=== PATIENT | male | born 1985 | race Caucasian/White ===

== ENCOUNTER 2022-12-07 09:54 | Emergency (ER) | payer MEDICARE, MEDICAID ==
[~2022-12-07] VITALS: Ht 185.4 cm; Wt 75.9 kg
[2022-12-07 09:58] VITALS: BP 126/79
[2022-12-07] MEDS ORDERED: CITALOpram 10mg tablet PO ONE (11:35)
[2022-12-07] MEDS ORDERED: acetaminophen 325mg tablet PO ONE (11:35)
[2022-12-07] MEDS ORDERED: ketorolac trometh inj. 60 MG/2 ML VIAL IM ONE (11:35)
[2022-12-07] MEDS ORDERED: proCHLORperazine 10 MG/2 ml inj IM ONE (11:35)
[2022-12-07] MEDS ORDERED: SUMAtriptan succ. 6 MG/0.5ml vial SQ ONE (11:35)
[2022-12-07] MEDS ORDERED: LORA-269 PO (11:37)
[2022-12-07] MEDS ORDERED: CITA20TA28 PO (11:37)
== END 2022-12-07 12:25 | disposition home or self-care (01) ==
LOC: ER 09:55
DX: H53.143 Visual discomfort, bilateral (principal); G43.909 Migraine, unspecified, not intractable, without status migrainosus; Z88.5 Allergy status to narcotic agent; Z79.899 Other long term (current) drug therapy
CPT/HCPCS: 96372; 99284; J0780; J1885; J3030

== ENCOUNTER 2022-12-21 08:03 | Emergency (ER) | payer MEDICARE, MEDICAID ==
[~2022-12-21] VITALS: Ht 185.4 cm; Wt 77.3 kg
[~2022-12-21 08:03] MED LIST: CITA20TA28 PO; LORA-269 PO
[2022-12-21 08:16] VITALS: BP 146/83
[2022-12-21 09:49] LABS: BASOPHILS % (AUTO) 0.6 % (0-1); EOSINOPHILS # (AUTO) 0.1 X10'3 (0-0.9); HEMATOCRIT 47.9 % (42.0-52.0); HEMOGLOBIN 16.4 g/dl (14.0-17.9); LYMPHOCYTES # (AUTO) 1.8 X10'3 (1.1-4.8); LYMPHOCYTES % (AUTO) 28.6 % (21-51); MEAN CORPUSCULAR HEMOGLOBIN 31.4 PG (27.0-31.0); MEAN CORPUSCULAR HGB CONC 34.2 g/dL (33.0-36.5); MEAN CORPUSCULAR VOLUME 91.6 FL (78-98); MEAN PLATELET VOLUME 7.9 FL (7.4-10.4); MONOCYTES # (AUTO) 0.5 X10'3 (0-0.9); MONOCYTES % (AUTO) 7.7 % (2-12); NEUTROPHILS # (AUTO) 3.9 X10'3 (1.8-7.7); NEUTROPHILS % (AUTO) 62.1 % (42-75); PLATELET COUNT 182 X10'3 (140-440); RED BLOOD COUNT 5.23 X10'6 (4.70-6.10); RED CELL DISTRIBUTION WIDTH 13.6 % (11.5-14.5); WHITE BLOOD COUNT 6.2 X10'3 (4.5-11.0)
[2022-12-21 10:03] LABS: ALANINE AMINOTRANSFERASE 15 U/L (12-78); ALBUMIN 3.9 G/DL (3.4-5.0); ALBUMIN/GLOBULIN RATIO 1.3 (1.1-1.5); ALKALINE PHOSPHATASE 53 IU/L (46-116); ANION GAP 6 (8-16); ASPARTATE AMINO TRANSFERASE 15 U/L (10-37); BILIRUBIN,TOTAL 0.5 MG/DL (0.1-1.0); BLOOD UREA NITROGEN 8 MG/DL (7-18); BUN/CREATININE RATIO 10.3 (10.0-20.0); CHLORIDE 104 MMOL/L (99-107); CREATININE 0.78 MG/DL (0.60-1.10); GLUCOSE 94 MG/DL (70-104); POTASSIUM 4.1 MMOL/L (3.5-5.1); SODIUM 141 MMOL/L (135-145); TOTAL CARBON DIOXIDE 30.9 MMOL/L (24-32); TOTAL PROTEIN 6.9 G/DL (6.4-8.2); eGFR > 90 ML/MIN
[2022-12-21 10:12] LABS: ETHANOL < 0.010 GM/DL (0.0-0.010)
[2022-12-21 12:59] LABS: CLARITY,URINE CLEAR (Clear); COLOR,URINE YELLOW (Yellow); GLUCOSE, URINE NEGATIVE (Neg); KETONES,URINE NEGATIVE (Neg); LEUKOCYTE ESTERASE ,URINE NEGATIVE (Neg); NITRITES, URINE NEGATIVE (Neg); OCCULT BLOOD,URINE NEGATIVE (Neg); PROTEIN,URINE NEGATIVE (Neg); UROBILINOGEN,URINE 0.2 E.U/dL (0.2-1.0)
[2022-12-21 13:04] LABS: UA COLLECTION TYPE URINAL
[2022-12-21] MEDS ORDERED: nicotine 14mg patch - 24hr TD ONE (13:05)
[2022-12-21 13:22] LABS: URINE AMPHETAMINE SCREEN NEGATIVE (Neg); URINE BARBITUATE SCREEN NEGATIVE (Neg); URINE BENZODIAZEPINES SCREEN NEGATIVE (Neg); URINE CANNABINOID SCREEN POSITIVE (Neg); URINE COCAINE SCREEN NEGATIVE (Neg); URINE METHADONE SCREEN NEGATIVE (Neg); URINE OPIATE SCREEN NEGATIVE (Neg); URINE PHENCYCLIDINE SCREEN NEGATIVE (Neg)
--- NOTE | 2022-12-21 13:49 | NUR ---
PACKET FAXED TO [facility]
[2022-12-21] MEDS ORDERED: ESCI-10 PO (17:21)
--- NOTE | 2022-12-21 17:31 | NUR ---
Pt seen by [facility] cleaner housekeeping and pt does not meet criteria for hold and is being DCd back to care facility.
== END 2022-12-21 18:13 | disposition home or self-care (01) ==
LOC: ER 08:03
DX: F32.9 Major depressive disorder, single episode, unspecified (principal); Z20.822 Contact with and (suspected) exposure to COVID-19; G43.909 Migraine, unspecified, not intractable, without status migrainosus; Z72.89 Other problems related to lifestyle; Z88.5 Allergy status to narcotic agent; Z79.899 Other long term (current) drug therapy; X83.8XXA Intentional self-harm by other specified means, initial encounter; Y93.89 Activity, other specified; Y92.89 Other specified places as the place of occurrence of the external cause; Y99.8 Other external cause status
CPT/HCPCS: 36415; 80053; 80305; 80320; 81003; 84443; 85025; 87811; 99285

== ENCOUNTER 2023-02-12 10:18 | Emergency (ER) | payer MEDICARE, MEDICAID ==
[~2023-02-12] VITALS: Ht 185.4 cm; Wt 81.8 kg
[~2023-02-12 10:18] MED LIST changes: -CITA20TA28 PO; +ESCI-10 PO
[2023-02-12 10:26] VITALS: BP 127/50
== END 2023-02-12 11:22 | disposition home or self-care (01) ==
LOC: ER 10:18
DX: F29 Unspecified psychosis not due to a substance or known physiological condition (principal); Z00.8 Encounter for other general examination
CPT/HCPCS: 99281

== ENCOUNTER 2023-03-06 17:29 | Emergency (ER) | payer MEDICARE, MEDICAID ==
[~2023-03-06] VITALS: Ht 177.8 cm; Wt 77.3 kg
--- NOTE | 2023-03-06 18:08 | NUR ---
Pt changed into green scrubs with help from nurse. Pt clothes taken to OF room 27 and labeled. Pt wheelchair put outside of his room. No acute distress noted at this time.
[2023-03-06 18:28] LABS: BASOPHILS % (AUTO) 0.5 % (0-1); EOSINOPHILS # (AUTO) 0.1 X10'3 (0-0.9); EOSINOPHILS % (AUTO) 1.1 % (0-6); HEMOGLOBIN 14.9 g/dl (14.0-17.9); LYMPHOCYTES # (AUTO) 2.1 X10'3 (1.1-4.8); LYMPHOCYTES % (AUTO) 39.7 % (21-51); MEAN CORPUSCULAR HEMOGLOBIN 31.2 PG (27.0-31.0); MEAN CORPUSCULAR HGB CONC 33.8 g/dL (33.0-36.5); MEAN CORPUSCULAR VOLUME 92.3 FL (78-98); MEAN PLATELET VOLUME 8.2 FL (7.4-10.4); MONOCYTES # (AUTO) 0.5 X10'3 (0-0.9); MONOCYTES % (AUTO) 8.6 % (2-12); NEUTROPHILS # (AUTO) 2.7 X10'3 (1.8-7.7); NEUTROPHILS % (AUTO) 50.1 % (42-75); PLATELET COUNT 191 X10'3 (140-440); RED BLOOD COUNT 4.77 X10'6 (4.70-6.10); RED CELL DISTRIBUTION WIDTH 13.7 % (11.5-14.5); WHITE BLOOD COUNT 5.3 X10'3 (4.5-11.0)
[2023-03-06 18:53] LABS: ALANINE AMINOTRANSFERASE 48 U/L (12-78); ALBUMIN 3.8 G/DL (3.4-5.0); ALBUMIN/GLOBULIN RATIO 1.4 (1.1-1.5); ALKALINE PHOSPHATASE 50 IU/L (46-116); ANION GAP 14 (8-16); ASPARTATE AMINO TRANSFERASE 24 U/L (10-37); BILIRUBIN,TOTAL 0.4 MG/DL (0.1-1.0); BLOOD UREA NITROGEN 12 MG/DL (7-18); BUN/CREATININE RATIO 16.7 (10.0-20.0); CALCIUM 8.8 MG/DL (8.5-10.1); CHLORIDE 104 MMOL/L (99-107); CREATININE 0.72 MG/DL (0.60-1.10); ETHANOL 0.069 GM/DL (0.0-0.010); GLUCOSE 78 MG/DL (70-104); POTASSIUM 3.7 MMOL/L (3.5-5.1); SODIUM 142 MMOL/L (135-145); TOTAL CARBON DIOXIDE 24.1 MMOL/L (24-32); TOTAL PROTEIN 6.6 G/DL (6.4-8.2); eGFR > 90 ML/MIN
[2023-03-06 19:29] LABS: VALPROATE 45 UG/ML (50-100)
--- NOTE | 2023-03-06 20:29 | NUR ---
report given to [facility] nurse. pt moved to room #20.
--- NOTE | 2023-03-06 20:49 | NUR ---
received pt from main ER, pt in bed 20.
[2023-03-06] MEDS ORDERED: traZODone 150mg tablet PO SCH (21:05)
--- NOTE | 2023-03-06 21:12 | NUR ---
Pt states he is depressed, has been a parapalegic most of his life and its staring "to get to him." Pt denies MH symptoms at this time. Pt is resting in bed at this time.
[2023-03-06 21:24] LABS: CLARITY,URINE CLOUDY (Clear); COLOR,URINE YELLOW (Yellow); GLUCOSE, URINE NEGATIVE (Neg); KETONES,URINE TRACE mg/dl (Neg); LEUKOCYTE ESTERASE ,URINE NEGATIVE (Neg); NITRITES, URINE NEGATIVE (Neg); OCCULT BLOOD,URINE NEGATIVE (Neg); PROTEIN,URINE NEGATIVE (Neg)
[2023-03-06] MEDS ORDERED: ESCI10TA PO (21:30)
[2023-03-06] MEDS ORDERED: LORA-269 PO (21:30)
[2023-03-06 21:31] LABS: URINE AMPHETAMINE SCREEN NEGATIVE (Neg); URINE BARBITUATE SCREEN NEGATIVE (Neg); URINE BENZODIAZEPINES SCREEN NEGATIVE (Neg); URINE CANNABINOID SCREEN POSITIVE (Neg); URINE COCAINE SCREEN NEGATIVE (Neg); URINE METHADONE SCREEN NEGATIVE (Neg); URINE OPIATE SCREEN NEGATIVE (Neg); URINE PHENCYCLIDINE SCREEN NEGATIVE (Neg)
[2023-03-06 21:41] LABS: UA COLLECTION TYPE NON-SPECIFIED
[2023-03-06 21:42] LABS: SQUAMOUS EPITHELIAL CELL,UR FEW /LPF (FEW)
[2023-03-06 21:43] LABS: COARSE GRANULAR CAST 0-3 /LPF (NEGATIVE); HYALINE CASTS 0-3 /LPF (NEGATIVE)
[2023-03-06 21:46] LABS: AMORPHOUS PHOSPHATES 4+; BACTERIA,URINE FEW /HPF (Neg); RBC,URINE 0-2 /HPF (0-2)
[2023-03-06 21:47] LABS: WBC,URINE 0-4 /HPF (0-4)
--- NOTE | 2023-03-06 23:03 | NUR ---
K+ level 3.1, KDUR replacement given 40meq. Addendum: 03/06/23 at 2304 by BRENDAN Disregard note
--- NOTE | 2023-03-06 23:05 | NUR ---
Pt appears to be sleeping.
--- NOTE | 2023-03-06 23:07 | NUR ---
Packet faxed to [facility].
--- NOTE | 2023-03-07 00:52 | NUR ---
pt appears to be sleeping.
--- NOTE | 2023-03-07 02:43 | NUR ---
pt appears to be sleeping.
--- NOTE | 2023-03-07 05:23 | NUR ---
pt appears to be sleeping.
[2023-03-07 05:51] VITALS: BP 98/50
[2023-03-07] MEDS: LORazepam 1 MG tablet PO SCH ×2 (07:16)
[2023-03-07] MEDS ORDERED: ESCITALOPRAM OXALATE 5 MG TABLET PO SCH (08:00)
--- NOTE | 2023-03-07 08:21 | NUR ---
Pt attempted to get up in wheelchair but was just laying straight and crying. Wants to has nothing to live for. States he is depressed he never got to make any friends or have a girlfriend. Has been in the hospital his whole life. Tech caught pt trying to tie BP cuff around his neck and then the sheet around his neck. Pt educated that if he tries that agin we will have to take away his sheets. Pt encouraged to verbal feelings and help figure out a solution.
--- NOTE | 2023-03-07 08:27 | NUR ---
I WITNESSED PT TRYING TO STRANGLE HIMSELF WITH THE SHEET. SAW HIM WRAPPING IT AROUND HIS NECK. ALSO PT TRIED TO STANGLE HIMSELF WITH THE BLOOD PRESSURE CUFF.
--- NOTE | 2023-03-07 09:43 | NUR ---
Pt to be discharged home back to detention, jailhome improvement installer will tile picker pt around noon.
== END 2023-03-07 12:24 | disposition still patient (30) ==
LOC: ER 17:29
DX: R45.851 Suicidal ideations (principal); Z20.822 Contact with and (suspected) exposure to COVID-19; G43.909 Migraine, unspecified, not intractable, without status migrainosus; Z88.5 Allergy status to narcotic agent
CPT/HCPCS: 36415; 80053; 80164; 80305; 80320; 81001; 85025; 87811; 99285

== ENCOUNTER 2023-03-09 00:46 | Emergency (ER) | payer MEDICARE, MEDICAID ==
[~2023-03-09] VITALS: Ht 185.4 cm; Wt 75.0 kg
[~2023-03-09 00:46] MED LIST changes: -ESCI-10 PO; +ESCI10TA PO
[2023-03-09 01:19] LABS: BASOPHILS % (AUTO) 0.5 % (0-1); EOSINOPHILS # (AUTO) 0.1 X10'3 (0-0.9); EOSINOPHILS % (AUTO) 1.4 % (0-6); HEMATOCRIT 43.9 % (42.0-52.0); HEMOGLOBIN 15.2 g/dl (14.0-17.9); LYMPHOCYTES # (AUTO) 2.8 X10'3 (1.1-4.8); LYMPHOCYTES % (AUTO) 31.3 % (21-51); MEAN CORPUSCULAR HEMOGLOBIN 31.3 PG (27.0-31.0); MEAN CORPUSCULAR HGB CONC 34.7 g/dL (33.0-36.5); MEAN CORPUSCULAR VOLUME 90.4 FL (78-98); MEAN PLATELET VOLUME 7.8 FL (7.4-10.4); MONOCYTES # (AUTO) 0.9 X10'3 (0-0.9); MONOCYTES % (AUTO) 9.7 % (2-12); NEUTROPHILS % (AUTO) 57.1 % (42-75); PLATELET COUNT 180 X10'3 (140-440); RED BLOOD COUNT 4.86 X10'6 (4.70-6.10); RED CELL DISTRIBUTION WIDTH 13.8 % (11.5-14.5); WHITE BLOOD COUNT 8.8 X10'3 (4.5-11.0)
[2023-03-09 01:29] LABS: ALANINE AMINOTRANSFERASE 44 U/L (12-78); ALBUMIN 3.8 G/DL (3.4-5.0); ALBUMIN/GLOBULIN RATIO 1.4 (1.1-1.5); ALKALINE PHOSPHATASE 51 IU/L (46-116); ANION GAP 8 (8-16); ASPARTATE AMINO TRANSFERASE 16 U/L (10-37); BILIRUBIN,TOTAL 0.6 MG/DL (0.1-1.0); BLOOD UREA NITROGEN 6 MG/DL (7-18); BUN/CREATININE RATIO 6.9 (10.0-20.0); CALCIUM 8.8 MG/DL (8.5-10.1); CHLORIDE 105 MMOL/L (99-107); CREATININE 0.87 MG/DL (0.60-1.10); ETHANOL < 0.010 GM/DL (0.0-0.010); GLUCOSE 107 MG/DL (70-104); POTASSIUM 4.1 MMOL/L (3.5-5.1); SODIUM 140 MMOL/L (135-145); TOTAL PROTEIN 6.5 G/DL (6.4-8.2); eGFR > 90 ML/MIN
--- NOTE | 2023-03-09 07:10 | NUR ---
Pt. taken in his wheelchair over to ER Overflow from the main ER accompanied by Tech. He is in bed sleeping at this time, rr are even and unlabored. Pt. was provided a clean urinal and is encouraged to provide a urine sample when he can since one has not yet been received.
--- NOTE | 2023-03-09 09:00 | NUR ---
Pt. continues to nap comfortably in bed and refused breakfast. 1:1 was completed at bedside and pt. was cooperative with assessment. He continues to report S/I, but denies any current plan. Pt. endorses ongoing depression and states, "I have a disease and it makes me want to hurt myself. I've tried multiple things before." Upon further questioning by this senior medical writer, pt. admits he has previously tried to run into traffic and hanging himself. Pt. is unsure of what medications he currently takes so this senior medical writer will attempt to call pt's current Jail to confirm.
--- NOTE | 2023-03-09 09:55 | NUR ---
Pt's urine was collected and sent to the lab.
[2023-03-09 10:31] LABS: CLARITY,URINE CLEAR (Clear); COLOR,URINE AMBER (Yellow); GLUCOSE, URINE NEGATIVE (Neg); KETONES,URINE TRACE mg/dl (Neg); LEUKOCYTE ESTERASE ,URINE NEGATIVE (Neg); NITRITES, URINE NEGATIVE (Neg); OCCULT BLOOD,URINE NEGATIVE (Neg); PH,URINE 6.5 (4.8-8.0); PROTEIN,URINE TRACE mg/dl (Neg)
[2023-03-09 10:33] LABS: UA COLLECTION TYPE CLN CATCH MIDSTREAM
[2023-03-09 10:39] LABS: MUCUS STRANDS MANY /LPF (Neg)
[2023-03-09 10:42] LABS: BACTERIA,URINE FEW /HPF (Neg); WBC,URINE 0-4 /HPF (0-4)
[2023-03-09 10:43] LABS: RBC,URINE 0-2 /HPF (0-2)
[2023-03-09 10:44] LABS: SQUAMOUS EPITHELIAL CELL,UR FEW /LPF (FEW)
[2023-03-09 10:52] LABS: URINE AMPHETAMINE SCREEN NEGATIVE (Neg); URINE BARBITUATE SCREEN NEGATIVE (Neg); URINE BENZODIAZEPINES SCREEN NEGATIVE (Neg); URINE CANNABINOID SCREEN POSITIVE (Neg); URINE COCAINE SCREEN NEGATIVE (Neg); URINE METHADONE SCREEN NEGATIVE (Neg); URINE OPIATE SCREEN POSITIVE (Neg); URINE PHENCYCLIDINE SCREEN NEGATIVE (Neg)
--- NOTE | 2023-03-09 10:56 | NUR ---
This program writer called [facility] in order to verify pt's home medications.
--- NOTE | 2023-03-09 11:00 | NUR ---
Pt. continues to sleep at this time, laying in bed on his left side, rise and fall of chest noted.
--- NOTE | 2023-03-09 11:23 | NUR ---
FAXED PT PACKET TO [facility].
[2023-03-09] MEDS ORDERED: LEVO75CA5 PO (11:29)
[2023-03-09] MEDS ORDERED: LORA-269 PO (11:29)
[2023-03-09] MEDS ORDERED: CHOL20002 PO (11:29)
[2023-03-09] MEDS ORDERED: DESM0.1T24 PO (11:29)
[2023-03-09] MEDS ORDERED: BUSP10TA11 PO (11:29)
[2023-03-09] MEDS ORDERED: ASCO-139 PO (11:29)
[2023-03-09] MEDS ORDERED: DIVA250T2 PO (11:29)
[2023-03-09] MEDS ORDERED: CITA-109 PO (11:29)
[2023-03-09] MEDS ORDERED: DESMOPRESSIN ACETATE 0.1 MG TABLET PO ONE (11:45)
--- NOTE | 2023-03-09 11:51 | NUR ---
Received orders from Dr. Bergman to start pt's daily medications now since he has not received them since yesterday morning. Also, to give pt. a one time dose of 0.1mg of desmopressin acetate now.
[2023-03-09] MEDS ORDERED: LORazepam 1 MG tablet PO PRN (11:55)
[2023-03-09] MEDS ORDERED: divalproex sod 250mg ER (24-hour) tablet PO SCH (11:58)
[2023-03-09] MEDS ORDERED: citalopram 20mg tablet PO SCH (11:59)
[2023-03-09] MEDS ORDERED: busPIRone 5mg tablet PO SCH (12:00)
--- NOTE | 2023-03-09 12:31 | NUR ---
Pt. reported anxiety r/t being in the hospital and requested PRN Ativan 1mg, medication was administered and will monitor.
--- NOTE | 2023-03-09 13:00 | NUR ---
Pt. is sleeping at this time, laying on his left side, rr are even and unlabored.
--- NOTE | 2023-03-09 13:15 | NUR ---
[facility] at bedside evaluating pt. at this time.
--- NOTE | 2023-03-09 15:09 | NUR ---
Pt. continues to sleep at this time, laying on his left side. RR are even and unlabored.
--- NOTE | 2023-03-09 16:44 | NUR ---
Pt. was discharged from the unit at this time in his wheel chair accompanied by Tech, his caregiver, and security. Pt. will be retuning back to the Assisted he lives at, [facility]. His caregiver will be driving him home. Pt's belongings were returned to him and he is able to contract for safety.
[2023-03-09 16:47] VITALS: BP 103/75
[2023-03-09] MEDS ORDERED: DESMOPRESSIN ACETATE 0.1 MG TABLET PO SCH (20:00)
[2023-03-10] MEDS ORDERED: levoTHYROXINE 75mcg tablet PO SCH (07:00)
== END 2023-03-09 16:51 | disposition home or self-care (01) ==
LOC: ER 00:47
DX: F99 Mental disorder, not otherwise specified (principal); Z20.822 Contact with and (suspected) exposure to COVID-19; G43.909 Migraine, unspecified, not intractable, without status migrainosus; Z88.5 Allergy status to narcotic agent
CPT/HCPCS: 36415; 80053; 80305; 80320; 81001; 85025; 87811; 99285

== ENCOUNTER 2023-04-03 14:58 | Emergency (ER) | payer MEDICARE, MEDICAID ==
[~2023-04-03] VITALS: Ht 185.4 cm; Wt 69.1 kg
[~2023-04-03 14:58] MED LIST changes: +ASCO-139 PO; +BUSP10TA11 PO; +CHOL20002 PO; +CITA-109 PO; +DESM0.1T24 PO; +DIVA250T2 PO; -ESCI10TA PO; +LEVO75CA5 PO
[2023-04-03 15:37] LABS: BASOPHILS # (AUTO) 0.1 X10'3 (0-0.2); BASOPHILS % (AUTO) 0.6 % (0-1); EOSINOPHILS % (AUTO) 0.3 % (0-6); HEMATOCRIT 42.2 % (42.0-52.0); HEMOGLOBIN 14.3 g/dl (14.0-17.9); LYMPHOCYTES # (AUTO) 1.9 X10'3 (1.1-4.8); LYMPHOCYTES % (AUTO) 20.4 % (21-51); MEAN CORPUSCULAR HEMOGLOBIN 31.2 PG (27.0-31.0); MEAN CORPUSCULAR VOLUME 91.9 FL (78-98); MEAN PLATELET VOLUME 7.1 FL (7.4-10.4); MONOCYTES # (AUTO) 0.6 X10'3 (0-0.9); MONOCYTES % (AUTO) 5.9 % (2-12); NEUTROPHILS # (AUTO) 6.8 X10'3 (1.8-7.7); NEUTROPHILS % (AUTO) 72.8 % (42-75); PLATELET COUNT 229 X10'3 (140-440); RED BLOOD COUNT 4.59 X10'6 (4.70-6.10); RED CELL DISTRIBUTION WIDTH 14.4 % (11.5-14.5); WHITE BLOOD COUNT 9.4 X10'3 (4.5-11.0)
[2023-04-03 15:53] LABS: ALANINE AMINOTRANSFERASE 29 U/L (12-78); ALBUMIN 3.4 G/DL (3.4-5.0); ALBUMIN/GLOBULIN RATIO 1.3 (1.1-1.5); ALKALINE PHOSPHATASE 52 IU/L (46-116); ANION GAP 9 (8-16); ASPARTATE AMINO TRANSFERASE 9 U/L (10-37); BILIRUBIN,TOTAL 0.5 MG/DL (0.1-1.0); BLOOD UREA NITROGEN 11 MG/DL (7-18); BUN/CREATININE RATIO 13.9 (10.0-20.0); CALCIUM 8.9 MG/DL (8.5-10.1); CHLORIDE 103 MMOL/L (99-107); CREATININE 0.79 MG/DL (0.60-1.10); GLUCOSE 98 MG/DL (70-104); POTASSIUM 4.1 MMOL/L (3.5-5.1); SODIUM 140 MMOL/L (135-145); TOTAL CARBON DIOXIDE 28.2 MMOL/L (24-32); TOTAL PROTEIN 6.1 G/DL (6.4-8.2); eGFR > 90 ML/MIN
[2023-04-03 16:04] LABS: ETHANOL < 0.010 GM/DL (0.0-0.010)
[2023-04-03 19:08] LABS: URINE AMPHETAMINE SCREEN NEGATIVE (Neg); URINE BARBITUATE SCREEN NEGATIVE (Neg); URINE BENZODIAZEPINES SCREEN NEGATIVE (Neg); URINE CANNABINOID SCREEN POSITIVE (Neg); URINE COCAINE SCREEN NEGATIVE (Neg); URINE METHADONE SCREEN NEGATIVE (Neg); URINE OPIATE SCREEN NEGATIVE (Neg); URINE PHENCYCLIDINE SCREEN NEGATIVE (Neg)
--- NOTE | 2023-04-03 20:15 | NUR ---
PT APPEARS TO BE SLEEPING, IN SUPINE POSITION, BREATHING AND UNLABORED IN NO APPARENT DISTRESS
[2023-04-04] MEDS ORDERED: levoTHYROXINE 75mcg tablet PO SCH (07:00)
--- NOTE | 2023-04-04 07:21 | NUR ---
Patient currently sleeping not in distress.
[2023-04-04 07:26] VITALS: BP 103/70
[2023-04-04] MEDS ORDERED: DESMOPRESSIN ACETATE 0.1 MG TABLET PO SCH (08:00)
[2023-04-04] MEDS ORDERED: busPIRone 5mg tablet PO SCH (08:00)
[2023-04-04] MEDS ORDERED: citalopram 20mg tablet PO SCH (08:00)
[2023-04-04] MEDS ORDERED: divalproex sod 250mg ER (24-hour) tablet PO SCH (08:00)
== END 2023-04-04 11:46 | disposition still patient (30) ==
LOC: ER 14:58
DX: F78.A9 Other genetic related intellectual disability (principal); Z20.822 Contact with and (suspected) exposure to COVID-19; G43.909 Migraine, unspecified, not intractable, without status migrainosus; F32.A Depression, unspecified; Z88.5 Allergy status to narcotic agent; Z79.899 Other long term (current) drug therapy
CPT/HCPCS: 36415; 80053; 80305; 80320; 84443; 85025; 87811; 99285

== ENCOUNTER 2023-06-08 08:33 | Emergency (ER) | payer MEDICARE, MEDICAID ==
[~2023-06-08] VITALS: Ht 185.4 cm; Wt 79.5 kg
[~2023-06-08 08:33] MED LIST changes: -ASCO-139 PO; -CHOL20002 PO; -LORA-269 PO
[2023-06-08 08:36] VITALS: BP 142/83; PULSE 86; RESP 17; TEMP 97.9; O2SAT 97
--- NOTE | 2023-06-08 10:16 | NUR ---
Paged rn social services to see this patient orly
[2023-06-09] MEDS ORDERED: LORA-269 PO (05:30)
[2023-06-09] MEDS ORDERED: CITA20TA28 PO (05:30)
[2023-06-09] MEDS ORDERED: vitamin d PO (05:30)
[2023-06-09] MEDS ORDERED: [UNRECOGNIZED DRUG - CODE] PO (05:30)
[2023-06-09] MEDS ORDERED: MUPI22OI30 TOP (05:30)
[2023-06-09] MEDS ORDERED: OMEP40CA21 PO (05:30)
== END 2023-06-08 10:46 | disposition home or self-care (01) ==
LOC: ER 08:33
DX: F89 Unspecified disorder of psychological development (principal); G43.909 Migraine, unspecified, not intractable, without status migrainosus; Z88.5 Allergy status to narcotic agent
CPT/HCPCS: 99284

== ENCOUNTER 2023-06-08 23:39 | Emergency (ER) | payer MEDICARE, MEDICAID ==
[~2023-06-08] VITALS: Ht 185.4 cm; Wt 65.0 kg
--- NOTE | 2023-06-09 01:25 | NUR ---
[facility] a [facility], he states they didn't pick him up today and also that another tenant is going into his room from the penitentiary.
[2023-06-09 02:24] LABS: BASOPHILS # (AUTO) 0.1 X10'3 (0-0.2); BASOPHILS % (AUTO) 0.8 % (0-1); EOSINOPHILS # (AUTO) 0.2 X10'3 (0-0.9); EOSINOPHILS % (AUTO) 2.1 % (0-6); HEMOGLOBIN 15.5 g/dl (14.0-17.9); LYMPHOCYTES # (AUTO) 3.4 X10'3 (1.1-4.8); LYMPHOCYTES % (AUTO) 36.8 % (21-51); MEAN CORPUSCULAR HEMOGLOBIN 31.3 PG (27.0-31.0); MEAN CORPUSCULAR HGB CONC 33.6 g/dL (33.0-36.5); MEAN CORPUSCULAR VOLUME 93.3 FL (78-98); MEAN PLATELET VOLUME 7.5 FL (7.4-10.4); MONOCYTES # (AUTO) 0.6 X10'3 (0-0.9); MONOCYTES % (AUTO) 6.7 % (2-12); NEUTROPHILS # (AUTO) 4.9 X10'3 (1.8-7.7); NEUTROPHILS % (AUTO) 53.6 % (42-75); PLATELET COUNT 240 X10'3 (140-440); RED BLOOD COUNT 4.93 X10'6 (4.70-6.10); RED CELL DISTRIBUTION WIDTH 14.4 % (11.5-14.5); WHITE BLOOD COUNT 9.2 X10'3 (4.5-11.0)
[2023-06-09 02:32] LABS: ALANINE AMINOTRANSFERASE 24 U/L (12-78); ALBUMIN 3.8 G/DL (3.4-5.0); ALBUMIN/GLOBULIN RATIO 1.2 (1.1-1.5); ALKALINE PHOSPHATASE 55 IU/L (46-116); ANION GAP 7 (8-16); ASPARTATE AMINO TRANSFERASE 13 U/L (10-37); BILIRUBIN,TOTAL 0.4 MG/DL (0.1-1.0); BLOOD UREA NITROGEN 7 MG/DL (7-18); BUN/CREATININE RATIO 8.5 (10.0-20.0); CALCIUM 9.3 MG/DL (8.5-10.1); CHLORIDE 108 MMOL/L (99-107); CREATININE 0.82 MG/DL (0.60-1.10); GLUCOSE 92 MG/DL (70-104); POTASSIUM 4.1 MMOL/L (3.5-5.1); SODIUM 144 MMOL/L (135-145); TOTAL CARBON DIOXIDE 29.3 MMOL/L (24-32); TOTAL PROTEIN 7.1 G/DL (6.4-8.2); eCRCL 111 ML/MIN; eGFR > 90 ML/MIN
[2023-06-09] MEDS ORDERED: CITA20TA28 PO (05:30)
[2023-06-09] MEDS ORDERED: [UNRECOGNIZED DRUG - CODE] PO (05:30)
[2023-06-09] MEDS ORDERED: OMEP40CA21 PO (05:30)
[2023-06-09] MEDS ORDERED: LORA-269 PO (05:30)
[2023-06-09] MEDS ORDERED: MUPI22OI30 TOP (05:30)
[2023-06-09] MEDS ORDERED: vitamin d PO (05:30)
--- NOTE | 2023-06-09 05:40 | NUR ---
Received pt. from ER, placed in bed 24. Placed pt. in green scrubs. Pt has CP and is in a wheelchair. Pt is suicidal and had thoughts to walk into traffic. Pt is malodorous with skin around his hands blackenedn from wheelchair. Pt given urinal and water at bedside.
--- NOTE | 2023-06-09 07:27 | NUR ---
PT LYING ON RIGHT SIDE IN BED, APPEARS TO BE SLEEPING IN NAD, BREATHING EVEN AND UNLABORED. PT INFOMRED BREAKFAST TRAY AT BEDSIDE, HE CONTINUES TO SLEEP
[2023-06-09 07:48] LABS: BILIRUBIN,URINE NEGATIVE (Neg); CLARITY,URINE CLEAR (Clear); COLOR,URINE YELLOW (Yellow); GLUCOSE, URINE NEGATIVE (Neg); KETONES,URINE NEGATIVE (Neg); LEUKOCYTE ESTERASE ,URINE NEGATIVE (Neg); NITRITES, URINE NEGATIVE (Neg); OCCULT BLOOD,URINE NEGATIVE (Neg); PH,URINE 6.5 (4.8-8.0); PROTEIN,URINE NEGATIVE (Neg); UROBILINOGEN,URINE 0.2 E.U/dL (0.2-1.0)
[2023-06-09 07:49] LABS: ETHANOL < 10 MG/DL (<10); THYROID STIMULATING HORMONE 4.82 ulU/ml (0.34-4.50)
[2023-06-09 07:52] LABS: UA COLLECTION TYPE NON-SPECIFIED
[2023-06-09 08:00] LABS: URINE AMPHETAMINE SCREEN NEGATIVE (Neg); URINE BARBITUATE SCREEN NEGATIVE (Neg); URINE BENZODIAZEPINES SCREEN NEGATIVE (Neg); URINE CANNABINOID SCREEN POSITIVE (Neg); URINE COCAINE SCREEN NEGATIVE (Neg); URINE METHADONE SCREEN NEGATIVE (Neg); URINE OPIATE SCREEN NEGATIVE (Neg); URINE PHENCYCLIDINE SCREEN NEGATIVE (Neg)
[2023-06-09] MEDS ORDERED: buPROPion 100mg tablet PO SCH (08:00)
[2023-06-09] MEDS: busPIRone 5mg tablet PO SCH ×3 (08:08→20:07)
[2023-06-09] MEDS: divalproex sodium 500mg tablet.DR PO SCH ×2 (08:08→17:39)
[2023-06-09] MEDS: aripiprazole 5mg tablet PO SCH (08:09)
[2023-06-09] MEDS: CITALOpram 10mg tablet PO SCH (08:10)
--- NOTE | 2023-06-09 08:22 | NUR ---
PTS CAREGIVER ARRIVED AT ER CLAIMING SHE WAS CALLED BY SOMEONE TO "COME GET HIM OR HE WILL BE PLACED ON A HOLD" THIS RN IS UNABLE TO LOCATE ANY DOCUMENTATION OF SUCH A CALL AND NOTHING OF THE SORT WAS MENTIONED IN REPORT. PT HAS ALREADY BEEN PLACED ON A 1798 HOLD AND MUST BE EVALUATED BY [facility] BEFORE HE CAN BE RELEASED. CAREGIVER INFOMRED OF THIS, SHE VERBALIZES UNDERSTANDING
--- NOTE | 2023-06-09 10:50 | NUR ---
RECEIVED REPORT FROM AIYANA HAN. PT IS IN BED RESTING. WITNESSED CHEST RISING AND FALLING. BREATHING EVEN UNLABORED. NO NEEDS AT THIS TIME.
--- NOTE | 2023-06-09 12:19 | NUR ---
PT GOT LUNCH TRAY BUT DID NOT WANT TO EAT AND KEPT SLEEPING. LEFT TRAY AT BEDSIDE
--- NOTE | 2023-06-09 12:57 | NUR ---
GAVE PT 1300 MEDICATION. PT IS AWAKE AND DRINKING WATER. PT IS CALM AND COOPERATIVE, NO NEEDS AT THIS TIME.
--- NOTE | 2023-06-09 13:57 | NUR ---
PT GOT UP TO USE THE RESTROOM A COUPLE TIMES. TECH CHANGED HIS SHEETS AND HE ASKED FOR MORE WATER. PT IS CALM AND COOPERATIVE.
--- NOTE | 2023-06-09 14:55 | NUR ---
PT IS ASLEEP IN BED. BREATHING EVEN, UNLABORED
--- NOTE | 2023-06-09 16:01 | NUR ---
PT IS IN BED RESTING. PT HAS BEEN DRINKING ALOT OF WATER AND URINATING FREQUENTLY. PT STATED HE HAS DIABETES INSIPIDUS. PT HAS BEEN VERY COOPERATIVE AND COMPLIANT.
--- NOTE | 2023-06-09 16:47 | NUR ---
PT IS IN BED ASLEEP.
--- NOTE | 2023-06-09 17:43 | NUR ---
PT IS AWAKE AND WANTED FRESH ICE WATER. PT'S MEDICATION WAS DUE AND ADMINISTERED. PT TOOK WITH NO PROBLEMS. PT LAYED BACK DOWN IN BED.
--- NOTE | 2023-06-09 18:45 | NUR ---
Client ate 50% of dinner tray, Adjusted clients bed. He requested Trazodone for sleep. Reported mild right hip pain.
[2023-06-09] MEDS ORDERED: traZODone 50mg tablet PO PRN (19:55)
--- NOTE | 2023-06-09 20:00 | NUR ---
Client given third pitcher of water. Dx: SIADH Order for 150 mg Trazodone Tab PO received. 500 ml Urine emptied from urinal. Client is pleasant and cooperative. Addendum: 06/09/23 at 2222 by [email or web address] CORRECTION: SIADH is uncertain. Client is a paraplegic.
--- NOTE | 2023-06-09 20:16 | NUR ---
Received PM Buspar and 159 mg Trazodone Tab PO. Compliant with meds. Addendum: 06/09/23 at 2111 by [email or web address] CORRECTION: 150 mg Trazodone - not 159.
--- NOTE | 2023-06-09 20:55 | NUR ---
Resting on right side. Resp even and unlabored.
--- NOTE | 2023-06-10 01:15 | NUR ---
Resting on left side. Resp even and unlabored.
--- NOTE | 2023-06-10 01:32 | NUR ---
Emptied 1000 ml from urinal. Given another pitcher of water. Lying on right side.
--- NOTE | 2023-06-10 03:10 | NUR ---
Emptied 300 CC from urinal
--- NOTE | 2023-06-10 03:18 | NUR ---
Episode of coughing. Client stated "My water went down the wrong pipe." Assisted to a raised position by Johnnie Doshi LVN. Stopped coughing. Resp even and unlabored.
--- NOTE | 2023-06-10 05:26 | NUR ---
Sleeping on right side. Resp even and unlabored.
[2023-06-10 05:52] VITALS: BP 117/65; PULSE 74; RESP 18; TEMP 97.6; O2SAT 97
--- NOTE | 2023-06-10 07:29 | NUR ---
Patient sleeping supine. No distress observed. Continue to monitor.
--- NOTE | 2023-06-10 08:14 | NUR ---
Patient eating breakfast. No distress observed. Continue to monitor.
[2023-06-10] MEDS: aripiprazole 5mg tablet PO SCH (08:45)
[2023-06-10] MEDS: divalproex sodium 500mg tablet.DR PO SCH (08:45)
[2023-06-10] MEDS: busPIRone 5mg tablet PO SCH (08:45)
[2023-06-10] MEDS: CITALOpram 10mg tablet PO SCH (09:37)
--- NOTE | 2023-06-10 10:05 | NUR ---
Patient urinating often and drinking a lot of water. No distress observed. Continue to monitor,
--- NOTE | 2023-06-10 10:40 | NUR ---
ESSENCE, Ashlee, evaluating patient. No distress observed. Continue to monitor.
--- NOTE | 2023-06-10 12:05 | NUR ---
Patient is dressed and ready to go as patient was not placed on a hold. Patient eating lunch and awaiting pick-up from his fdc. Patient is calm and cooperative. No distress observed. Continue to monitor.
== END 2023-06-10 12:25 | disposition home or self-care (01) ==
LOC: ER 23:39
DX: R45.851 Suicidal ideations (principal); Z20.822 Contact with and (suspected) exposure to COVID-19; R62.50 Unspecified lack of expected normal physiological development in childhood; G43.909 Migraine, unspecified, not intractable, without status migrainosus; Z88.5 Allergy status to narcotic agent; Z88.8 Allergy status to other drugs, medicaments and biological substances; Z79.899 Other long term (current) drug therapy
CPT/HCPCS: 36415; 80053; 80305; 80320; 81003; 84443; 85025; 87811; 99285

== ENCOUNTER 2023-08-22 20:16 | Emergency (ER) | payer MEDICAID, MEDICARE ==
[~2023-08-22] VITALS: Ht 185.4 cm; Wt 72.0 kg
[~2023-08-22 20:16] MED LIST changes: +CITA20TA28 PO; +LORA-269 PO; +MUPI22OI30 TOP; +OMEP40CA21 PO; +[UNRECOGNIZED DRUG - CODE] PO; +vitamin d PO
[2023-08-23 00:04] LABS: MEAN CORPUSCULAR HEMOGLOBIN 31.1 PG (27.0-31.0); MEAN CORPUSCULAR VOLUME 90.3 FL (78-98); MEAN PLATELET VOLUME 7.1 FL (7.4-10.4); RED CELL DISTRIBUTION WIDTH 13.9 % (11.5-14.5)
[2023-08-23 00:06] LABS: BASOPHILS # (AUTO) 0.2 X10'3 (0-0.2); BASOPHILS % (AUTO) 1.5 % (0-1); EOSINOPHILS # (AUTO) 0.3 X10'3 (0-0.9); EOSINOPHILS % (AUTO) 2.6 % (0-6); HEMATOCRIT 44.2 % (42.0-52.0); HEMOGLOBIN 15.2 g/dl (14.0-17.9); LYMPHOCYTES # (AUTO) 3.8 X10'3 (1.1-4.8); LYMPHOCYTES % (AUTO) 37.8 % (21-51); MEAN CORPUSCULAR HGB CONC 34.4 g/dL (33.0-36.5); MONOCYTES # (AUTO) 0.6 X10'3 (0-0.9); NEUTROPHILS # (AUTO) 5.2 X10'3 (1.8-7.7); NEUTROPHILS % (AUTO) 52.1 % (42-75); PLATELET COUNT 234 X10'3 (140-440)
[2023-08-23 00:17] LABS: ALANINE AMINOTRANSFERASE 28 U/L (12-78); ALBUMIN 3.4 G/DL (3.4-5.0); ALBUMIN/GLOBULIN RATIO 1.1 (1.1-1.5); ALKALINE PHOSPHATASE 61 IU/L (46-116); ANION GAP 8 (8-16); ASPARTATE AMINO TRANSFERASE 15 U/L (10-37); BILIRUBIN,TOTAL 0.4 MG/DL (0.1-1.0); BLOOD UREA NITROGEN 13 MG/DL (7-18); BUN/CREATININE RATIO 15.5 (10.0-20.0); CALCIUM 8.6 MG/DL (8.5-10.1); CHLORIDE 102 MMOL/L (99-107); CREATININE 0.84 MG/DL (0.60-1.10); GLUCOSE 94 MG/DL (70-104); POTASSIUM 4.3 MMOL/L (3.5-5.1); SODIUM 137 MMOL/L (135-145); TOTAL CARBON DIOXIDE 27.1 MMOL/L (24-32); TOTAL PROTEIN 6.5 G/DL (6.4-8.2); eCRCL 120 ML/MIN; eGFR > 90 ML/MIN
[2023-08-23 00:26] LABS: ETHANOL < 10 MG/DL (<10); THYROID STIMULATING HORMONE 3.26 ulU/ml (0.34-4.50)
[2023-08-23] MEDS ORDERED: DIVA250T8 PO (01:12)
[2023-08-23] MEDS ORDERED: BUSP10TA3 PO (01:12)
[2023-08-23] MEDS ORDERED: CITA10TA93 (01:12)
[2023-08-23] MEDS ORDERED: DESM10SP7 BOTHNARES (01:12)
[2023-08-23] MEDS ORDERED: ARIP20TA21 PO (01:12)
[2023-08-23] MEDS ORDERED: CITA20TA28 PO (01:12)
[2023-08-23 01:26] LABS: URINE AMPHETAMINE SCREEN NEGATIVE (Neg); URINE BARBITUATE SCREEN NEGATIVE (Neg); URINE BENZODIAZEPINES SCREEN NEGATIVE (Neg); URINE CANNABINOID SCREEN POSITIVE (Neg); URINE COCAINE SCREEN NEGATIVE (Neg); URINE METHADONE SCREEN NEGATIVE (Neg); URINE OPIATE SCREEN NEGATIVE (Neg); URINE PHENCYCLIDINE SCREEN NEGATIVE (Neg)
[2023-08-23 06:17] VITALS: O2SAT 96
[2023-08-23] MEDS ORDERED: busPIRone 5mg tablet PO SCH (08:00)
[2023-08-23] MEDS ORDERED: citalopram 20mg tablet PO SCH (08:00)
[2023-08-23 12:55] VITALS: BP 95/55; PULSE 64; RESP 20; TEMP 98.1
[2023-08-23] MEDS ORDERED: ARIPIPRAZOLE 10 MG TABLET PO SCH (21:00)
[2023-08-23] MEDS ORDERED: divalproex sod 250mg ER (24-hour) tablet PO SCH (21:00)
[2023-08-23] MEDS ORDERED: desmopressin 0.1mg/ml nasal spray 5ml btl NS SCH (21:00)
== END 2023-08-23 12:58 | disposition still patient (30) ==
LOC: ER 20:16
DX: R45.851 Suicidal ideations (principal); Z20.822 Contact with and (suspected) exposure to COVID-19; G43.909 Migraine, unspecified, not intractable, without status migrainosus; R44.2 Other hallucinations; Z88.5 Allergy status to narcotic agent; Z79.899 Other long term (current) drug therapy
CPT/HCPCS: 36415; 80053; 80305; 80320; 84443; 85025; 87811; 99285; C2617

== ENCOUNTER 2023-11-13 01:46 | Emergency (ER) | payer MEDICARE ==
[~2023-11-13] VITALS: Ht 185.4 cm; Wt 72.7 kg
[~2023-11-13 01:46] MED LIST changes: +ARIP20TA21 PO; -BUSP10TA11 PO; +BUSP10TA3 PO; -CITA-109 PO; -DESM0.1T24 PO; +DESM10SP7 BOTHNARES; -DIVA250T2 PO; +DIVA250T8 PO; -LEVO75CA5 PO; -LORA-269 PO; -MUPI22OI30 TOP; -OMEP40CA21 PO; -[UNRECOGNIZED DRUG - CODE] PO; -vitamin d PO
[2023-11-13 02:43] LABS: EOSINOPHILS # (AUTO) 0.2 X10'3 (0-0.9)
[2023-11-13 02:48] LABS: LYMPHOCYTES # (AUTO) 2.5 X10'3 (1.1-4.8); MEAN CORPUSCULAR VOLUME 89.8 FL (78-98); NEUTROPHILS # (AUTO) 6.7 X10'3 (1.8-7.7)
[2023-11-13 02:57] LABS: ALBUMIN 4.3 G/DL (3.4-5.0); ANION GAP 7 (8-16); BASOPHILS # (AUTO) 0.1 X10'3 (0-0.2); BASOPHILS % (AUTO) 0.6 % (0-1); BLOOD UREA NITROGEN 12 MG/DL (7-18); BUN/CREATININE RATIO 19.4 (10.0-20.0); CALCIUM 8.8 MG/DL (8.5-10.1); CHLORIDE 103 MMOL/L (99-107); CREATININE 0.62 MG/DL (0.60-1.10); EOSINOPHILS % (AUTO) 1.6 % (0-6); ETHANOL < 10 MG/DL (<10); GLUCOSE 88 MG/DL (70-104); HEMATOCRIT 49.7 % (42.0-52.0); HEMOGLOBIN 17.1 g/dl (14.0-17.9); LYMPHOCYTES % (AUTO) 24.7 % (21-51); MEAN CORPUSCULAR HEMOGLOBIN 30.8 PG (27.0-31.0); MEAN CORPUSCULAR HGB CONC 34.3 g/dL (33.0-36.5); MONOCYTES # (AUTO) 0.7 X10'3 (0-0.9); MONOCYTES % (AUTO) 7.2 % (2-12); NEUTROPHILS % (AUTO) 65.9 % (42-75); PLATELET COUNT 260 X10'3 (140-440); POTASSIUM 3.7 MMOL/L (3.5-5.1); RED BLOOD COUNT 5.54 X10'6 (4.70-6.10); RED CELL DISTRIBUTION WIDTH 14.1 % (11.5-14.5); SODIUM 141 MMOL/L (135-145); TOTAL CARBON DIOXIDE 30.7 MMOL/L (24-32); WHITE BLOOD COUNT 10.2 X10'3 (4.5-11.0); eCRCL 165 ML/MIN; eGFR > 90 ML/MIN
[2023-11-13 02:59] LABS: BILIRUBIN,URINE NEGATIVE (Neg); CLARITY,URINE CLEAR (Clear); COLOR,URINE YELLOW (Yellow); GLUCOSE, URINE NEGATIVE (Neg); KETONES,URINE NEGATIVE (Neg); LEUKOCYTE ESTERASE ,URINE NEGATIVE (Neg); NITRITES, URINE NEGATIVE (Neg); OCCULT BLOOD,URINE NEGATIVE (Neg); PH,URINE 6.5 (4.8-8.0); PROTEIN,URINE NEGATIVE (Neg); UROBILINOGEN,URINE 0.2 E.U/dL (0.2-1.0)
[2023-11-13 03:01] LABS: ACETAMINOPHEN < 2.0 UG/ML (10-30)
[2023-11-13 03:06] LABS: UA COLLECTION TYPE URINAL
[2023-11-13 03:13] LABS: URINE AMPHETAMINE SCREEN NEGATIVE (Neg); URINE BARBITUATE SCREEN NEGATIVE (Neg); URINE BENZODIAZEPINES SCREEN NEGATIVE (Neg); URINE CANNABINOID SCREEN POSITIVE (Neg); URINE COCAINE SCREEN NEGATIVE (Neg); URINE METHADONE SCREEN NEGATIVE (Neg); URINE OPIATE SCREEN NEGATIVE (Neg); URINE PHENCYCLIDINE SCREEN NEGATIVE (Neg)
[2023-11-13 08:06] VITALS: BP 99/63; PULSE 92; RESP 16; TEMP 97.6; O2SAT 99
[2023-11-13] MEDS ORDERED: VALB40CA2 PO (08:12)
[2023-11-13] MEDS ORDERED: CITA10TA93 PO (08:12)
[2023-11-13] MEDS ORDERED: CITALOpram 10mg tablet PO SCH (13:00)
[2023-11-13] MEDS ORDERED: busPIRone 5mg tablet PO SCH (20:00)
[2023-11-13] MEDS ORDERED: desmopressin 0.1mg/ml nasal spray 5ml btl NS SCH (21:00)
[2023-11-13] MEDS ORDERED: divalproex sod 250mg ER (24-hour) tablet PO SCH (21:00)
[2023-11-13] MEDS ORDERED: ARIPIPRAZOLE 10 MG TABLET PO SCH (21:00)
[2023-11-14] MEDS ORDERED: citalopram 20mg tablet PO SCH (08:00)
[2023-11-14] MEDS ORDERED: VALBENAZINE TOSYLATE PO SCH (08:00)
== END 2023-11-13 12:59 | disposition home or self-care (01) ==
LOC: ER 01:46
DX: R45.851 Suicidal ideations (principal); Z20.822 Contact with and (suspected) exposure to COVID-19; G43.909 Migraine, unspecified, not intractable, without status migrainosus; F32.A Depression, unspecified
CPT/HCPCS: 36415; 80048; 80305; 80320; 80329; 81003; 85025; 87811; 99285

== ENCOUNTER 2023-11-26 22:12 | Emergency (ER) | payer MEDICARE ==
[~2023-11-26] VITALS: Ht 185.4 cm; Wt 81.8 kg
[~2023-11-26 22:12] MED LIST changes: +CITA10TA93 PO; -CITA20TA28 PO; +VALB40CA2 PO
[2023-11-26 22:46] VITALS: TEMP 97.7
[2023-11-26 23:18] LABS: PLATELET COUNT 191 X10'3 (140-440)
[2023-11-26 23:19] LABS: ALANINE AMINOTRANSFERASE 26 U/L (12-78); ALBUMIN 3.6 G/DL (3.4-5.0); ALBUMIN/GLOBULIN RATIO 1.2 (1.1-1.5); ALKALINE PHOSPHATASE 55 IU/L (46-116); ANION GAP 8 (8-16); ASPARTATE AMINO TRANSFERASE 12 U/L (10-37); BILIRUBIN,TOTAL 0.4 MG/DL (0.1-1.0); BLOOD UREA NITROGEN 9 MG/DL (7-18); BUN/CREATININE RATIO 10.7 (10.0-20.0); CALCIUM 8.7 MG/DL (8.5-10.1); CHLORIDE 105 MMOL/L (99-107); CREATININE 0.84 MG/DL (0.60-1.10); GLUCOSE 91 MG/DL (70-104); POTASSIUM 4.1 MMOL/L (3.5-5.1); SODIUM 143 MMOL/L (135-145); TOTAL PROTEIN 6.6 G/DL (6.4-8.2); eCRCL 133 ML/MIN; eGFR > 90 ML/MIN
[2023-11-26 23:20] LABS: BASOPHILS # (AUTO) 0.1 X10'3 (0-0.2); BASOPHILS % (AUTO) 0.7 % (0-1); EOSINOPHILS # (AUTO) 0.2 X10'3 (0-0.9); EOSINOPHILS % (AUTO) 1.7 % (0-6); HEMATOCRIT 46.9 % (42.0-52.0); LYMPHOCYTES % (AUTO) 32.2 % (21-51); MEAN CORPUSCULAR HEMOGLOBIN 30.9 PG (27.0-31.0); MEAN CORPUSCULAR HGB CONC 34.2 g/dL (33.0-36.5); MEAN CORPUSCULAR VOLUME 90.5 FL (78-98); MEAN PLATELET VOLUME 7.7 FL (7.4-10.4); MONOCYTES # (AUTO) 0.7 X10'3 (0-0.9); NEUTROPHILS # (AUTO) 5.5 X10'3 (1.8-7.7); NEUTROPHILS % (AUTO) 58.4 % (42-75); RED BLOOD COUNT 5.18 X10'6 (4.70-6.10); RED CELL DISTRIBUTION WIDTH 14.3 % (11.5-14.5); WHITE BLOOD COUNT 9.4 X10'3 (4.5-11.0)
[2023-11-26 23:28] LABS: ETHANOL < 10 MG/DL (<10); THYROID STIMULATING HORMONE 1.77 ulU/ml (0.34-4.50)
[2023-11-27 00:34] LABS: BILIRUBIN,URINE NEGATIVE (Neg); CLARITY,URINE CLEAR (Clear); COLOR,URINE YELLOW (Yellow); GLUCOSE, URINE NEGATIVE (Neg); KETONES,URINE NEGATIVE (Neg); LEUKOCYTE ESTERASE ,URINE NEGATIVE (Neg); NITRITES, URINE NEGATIVE (Neg); OCCULT BLOOD,URINE NEGATIVE (Neg); PROTEIN,URINE NEGATIVE (Neg); UROBILINOGEN,URINE 0.2 E.U/dL (0.2-1.0)
[2023-11-27 00:38] LABS: UA COLLECTION TYPE CLN CATCH MIDSTREAM
[2023-11-27 00:44] LABS: URINE AMPHETAMINE SCREEN NEGATIVE (Neg); URINE BARBITUATE SCREEN NEGATIVE (Neg); URINE BENZODIAZEPINES SCREEN NEGATIVE (Neg); URINE CANNABINOID SCREEN POSITIVE (Neg); URINE COCAINE SCREEN NEGATIVE (Neg); URINE METHADONE SCREEN NEGATIVE (Neg); URINE OPIATE SCREEN NEGATIVE (Neg); URINE PHENCYCLIDINE SCREEN NEGATIVE (Neg)
[2023-11-27] MEDS ORDERED: ARIP10TA57 PO (01:23)
[2023-11-27 05:59] VITALS: BP 106/55; PULSE 67; RESP 14; O2SAT 96
[2023-11-27] MEDS: ARIPIPRAZOLE 10 MG TABLET PO SCH (09:09)
[2023-11-27] MEDS: CITALOpram 10mg tablet PO SCH (09:09)
[2023-11-27] MEDS: busPIRone 5mg tablet PO SCH (09:09)
[2023-11-27] MEDS ORDERED: desmopressin 0.1mg/ml nasal spray 5ml btl NS SCH (21:00)
[2023-11-27] MEDS ORDERED: divalproex sod 250mg ER (24-hour) tablet PO SCH (21:00)
== END 2023-11-27 12:03 | disposition home or self-care (01) ==
LOC: ER 22:13
DX: R45.851 Suicidal ideations (principal); Z20.822 Contact with and (suspected) exposure to COVID-19; G43.909 Migraine, unspecified, not intractable, without status migrainosus; Z88.5 Allergy status to narcotic agent; Z79.899 Other long term (current) drug therapy
CPT/HCPCS: 36415; 80053; 80305; 80320; 81003; 84443; 85025; 87811; 99285

== ENCOUNTER 2023-12-11 06:04 | Emergency (ER) | payer MEDICARE ==
[~2023-12-11] VITALS: Ht 185.4 cm; Wt 82.0 kg
[~2023-12-11 06:04] MED LIST changes: +ARIP10TA57 PO; -ARIP20TA21 PO
[2023-12-11 06:16] VITALS: TEMP 98.1
[2023-12-11 06:49] LABS: BILIRUBIN,URINE NEGATIVE (Neg); CLARITY,URINE CLEAR (Clear); COLOR,URINE YELLOW (Yellow); GLUCOSE, URINE NEGATIVE (Neg); KETONES,URINE NEGATIVE (Neg); LEUKOCYTE ESTERASE ,URINE NEGATIVE (Neg); NITRITES, URINE NEGATIVE (Neg); OCCULT BLOOD,URINE NEGATIVE (Neg); PROTEIN,URINE NEGATIVE (Neg); UROBILINOGEN,URINE 0.2 E.U/dL (0.2-1.0)
[2023-12-11 07:00] LABS: UA COLLECTION TYPE VOIDED
[2023-12-11 07:29] VITALS: BP 122/84; PULSE 74; RESP 17; O2SAT 99
[2023-12-11 07:38] LABS: URINE AMPHETAMINE SCREEN NEGATIVE (Neg); URINE BARBITUATE SCREEN NEGATIVE (Neg); URINE BENZODIAZEPINES SCREEN NEGATIVE (Neg); URINE CANNABINOID SCREEN POSITIVE (Neg); URINE COCAINE SCREEN NEGATIVE (Neg); URINE METHADONE SCREEN NEGATIVE (Neg); URINE OPIATE SCREEN NEGATIVE (Neg); URINE PHENCYCLIDINE SCREEN NEGATIVE (Neg)
[2023-12-11 08:10] LABS: BASOPHILS # (AUTO) 0.1 X10'3 (0-0.2); BASOPHILS % (AUTO) 1.9 % (0-1); EOSINOPHILS # (AUTO) 0.2 X10'3 (0-0.9); EOSINOPHILS % (AUTO) 3.1 % (0-6); HEMATOCRIT 51.6 % (42.0-52.0); HEMOGLOBIN 17.7 g/dl (14.0-17.9); LYMPHOCYTES # (AUTO) 2.4 X10'3 (1.1-4.8); MEAN CORPUSCULAR HEMOGLOBIN 30.9 PG (27.0-31.0); MEAN CORPUSCULAR HGB CONC 34.3 g/dL (33.0-36.5); MEAN CORPUSCULAR VOLUME 90.1 FL (78-98); MEAN PLATELET VOLUME 7.7 FL (7.4-10.4); MONOCYTES # (AUTO) 0.4 X10'3 (0-0.9); MONOCYTES % (AUTO) 6.1 % (2-12); NEUTROPHILS # (AUTO) 4.1 X10'3 (1.8-7.7); NEUTROPHILS % (AUTO) 55.9 % (42-75); PLATELET COUNT 232 X10'3 (140-440); RED BLOOD COUNT 5.72 X10'6 (4.70-6.10); RED CELL DISTRIBUTION WIDTH 14.3 % (11.5-14.5); WHITE BLOOD COUNT 7.3 X10'3 (4.5-11.0)
[2023-12-11 08:28] LABS: ANION GAP 8 (8-16); BLOOD UREA NITROGEN 6 MG/DL (7-18); BUN/CREATININE RATIO 8.5 (10.0-20.0); CALCIUM 8.7 MG/DL (8.5-10.1); CHLORIDE 106 MMOL/L (99-107); CREATININE 0.71 MG/DL (0.60-1.10); ETHANOL < 10 MG/DL (<10); GLUCOSE 86 MG/DL (70-104); POTASSIUM 4.2 MMOL/L (3.5-5.1); SALICYLATE 4.2 MG/DL (4.0-20.0); SODIUM 144 MMOL/L (135-145); THYROID STIMULATING HORMONE 2.18 ulU/ml (0.34-4.50); TOTAL CARBON DIOXIDE 30.1 MMOL/L (24-32); eCRCL 158 ML/MIN; eGFR > 90 ML/MIN
[2023-12-11 08:50] LABS: ACETAMINOPHEN < 2.0 UG/ML (10-30)
[2023-12-11] MEDS: VALBENAZINE TOSYLATE 40 MG PO SCH (09:21)
[2023-12-11 09:24] LABS: VALPROATE 33 UG/ML (50-100)
[2023-12-11] MEDS: busPIRone 5mg tablet PO SCH (09:40)
[2023-12-11] MEDS: ARIPIPRAZOLE 10 MG TABLET PO SCH (09:40)
[2023-12-11] MEDS: citalopram 20mg tablet PO SCH (09:41)
[2023-12-11] MEDS ORDERED: divalproex sod 250mg ER (24-hour) tablet PO SCH (21:00)
[2023-12-11] MEDS ORDERED: desmopressin 0.1mg/ml nasal spray 5ml btl NS SCH (21:00)
== END 2023-12-11 15:52 | disposition left against medical advice (07) ==
LOC: ER 06:04
DX: R45.851 Suicidal ideations (principal); Z20.822 Contact with and (suspected) exposure to COVID-19; F32.9 Major depressive disorder, single episode, unspecified; F15.10 Other stimulant abuse, uncomplicated
CPT/HCPCS: 36415; 80048; 80164; 80305; 80320; 80329; 81003; 84443; 85025; 87811; 99285

== ENCOUNTER 2024-06-21 14:25 | Emergency (ER) | payer MEDICARE, MEDICAID ==
[~2024-06-21] VITALS: Ht 185.4 cm; Wt 75.0 kg
[2024-06-21 14:31] VITALS: TEMP 98.1
[2024-06-21 15:26] LABS: BASOPHILS # (AUTO) 0.1 X10'3 (0-0.2); BASOPHILS % (AUTO) 0.5 % (0-1); EOSINOPHILS # (AUTO) 0.1 X10'3 (0-0.9); EOSINOPHILS % (AUTO) 1.4 % (0-6); HEMATOCRIT 44.3 % (42.0-52.0); LYMPHOCYTES # (AUTO) 1.9 X10'3 (1.1-4.8); LYMPHOCYTES % (AUTO) 18.8 % (21-51); MEAN CORPUSCULAR HEMOGLOBIN 31.3 PG (27.0-31.0); MEAN CORPUSCULAR VOLUME 92.1 FL (78-98); MEAN PLATELET VOLUME 7.3 FL (7.4-10.4); MONOCYTES # (AUTO) 0.8 X10'3 (0-0.9); MONOCYTES % (AUTO) 7.9 % (2-12); NEUTROPHILS # (AUTO) 7.3 X10'3 (1.8-7.7); NEUTROPHILS % (AUTO) 71.4 % (42-75); PLATELET COUNT 217 X10'3 (140-440); RED BLOOD COUNT 4.81 X10'6 (4.70-6.10); WHITE BLOOD COUNT 10.3 X10'3 (4.5-11.0)
[2024-06-21 15:34] LABS: ALBUMIN 3.6 G/DL (3.4-5.0); ANION GAP 7 (8-16); BLOOD UREA NITROGEN 9 MG/DL (7-18); BUN/CREATININE RATIO 12.9 (10.0-20.0); CALCIUM 8.4 MG/DL (8.5-10.1); CHLORIDE 104 MMOL/L (99-107); GLUCOSE 78 MG/DL (70-104); POTASSIUM 3.9 MMOL/L (3.5-5.1); SODIUM 139 MMOL/L (135-145); TOTAL CARBON DIOXIDE 28.3 MMOL/L (24-32); eCRCL 149 ML/MIN; eGFR > 90 ML/MIN
[2024-06-21 15:36] LABS: APTT 26 SECONDS (22-32); PROTHROMBIN TIME 10.7 SECONDS (9.0-12.0)
[2024-06-21] MEDS ORDERED: iohexol 350MG/ML 100ml bottle IV ONE (15:46)
[2024-06-21] MEDS: normal saline 1000ML IV soln IVB ONE (16:17)
[2024-06-21 17:46] VITALS: BP 115/64; PULSE 53; RESP 16; O2SAT 100
== END 2024-06-21 18:11 | disposition home or self-care (01) ==
LOC: ER 14:26
DX: H34.232 Retinal artery branch occlusion, left eye (principal); G43.909 Migraine, unspecified, not intractable, without status migrainosus; G89.29 Other chronic pain; M54.9 Dorsalgia, unspecified; F32.A Depression, unspecified; Z88.5 Allergy status to narcotic agent; Z79.899 Other long term (current) drug therapy; Z72.89 Other problems related to lifestyle
CPT/HCPCS: 36415; 70450; 70496; 70498; 71045; 80048; 82948; 85025; 85610; 85730; 93005; 96360; 99285; J7030; Q9967

== ENCOUNTER 2025-03-01 00:11 | Emergency (ER) | payer MEDICARE, MEDICAID ==
[~2025-03-01] VITALS: Ht 185.4 cm; Wt 74.5 kg
[~2025-03-01 00:11] MED LIST changes: -ARIP10TA57 PO; +ARIP10TA87 PO
[2025-03-01 00:13] VITALS: TEMP 98.8
--- NOTE | 2025-03-01 00:46 | Physician Documentation ---
History of Present Illness ~ Chief Complaint: Suicidal Ideation Stated Complaint: INCREASED AGGITATION Time Seen by MD: 00:24 Primary Medical Doctor: [facility] HPI This is a 40-year-old gentleman with a known history self-reported depression, marijuana use, who presents for evaluation of suicidal ideation without a plan. No obvious trigger provocation. Denies any somatic complaints. Did have an episode of urinary incontinence because my meds were off. Denies use of tobacco, alcohol or illicit substances. Medication Reconciliation Allergies: Coded Allergies: oxycodone (Verified Allergy, Unknown, 03/01/25) Scheduled Buspirone HCl (Buspirone HCl), 1 TAB PO BID, (Reported) Cholecalciferol (Vitamin D3) (Vitamin D3), 1 CAP PO HS, (Reported) Citalopram Hydrobromide* (Celexa*), 1 TAB PO DAILY, (Reported) Desmopressin Acetate (Desmopressin Acetate), 3 TAB PO BID, (Reported) Divalproex Sodium (Divalproex Sodium Er), 3 TAB PO HS, (Reported) Lurasidone HCl (Lurasidone HCl), 1 TAB PO DAILY, (Reported) Discontinued Medications Aripiprazole (Aripiprazole), 1 TAB PO DAILY, (Reported) Discontinued Reason: patient no longer taking Cholecalciferol (Vitamin D3) (Vitamin D3), 1 CAP PO HS, (Reported) Discontinued Reason: patient no longer taking Citalopram Hydrobromide (Citalopram HBr), 40 MG PO DAILY, (Reported) Discontinued Reason: patient no longer taking Desmopressin (Nonrefrigerated) (Desmopressin 10 Mcg/0.1 ml Spr), 1 SPRAY BOTHNARES HS, (Reported) Discontinued Reason: patient no longer taking Valbenazine Tosylate (Ingrezza), 1 CAP PO DAILY, (Reported) Discontinued Reason: patient no longer taking Past Medical History 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 Physical Exam Vital Signs: Temperature: 98.8, Heart Rate: 88, Respiratory Rate: 18, BP: 130/79, Pulse Oximetry: 95, Weight: 74.550 Physical Exam Physical examination: GENERAL: Awake, alert, oriented, GCS 15, no apparent distress, non-toxic appearing, answers questions, follows commands appropriately. HEENT: Atraumatic, normocephalic, pupils equal, extraocular muscles intact Active gross movements, sclerae anicteric, mucus membranes moist, no stridor. NECK: Midline, no JVD CARDIOVASCULAR: Good skin perfusion without evidence of pallor, mottling. PULMONARY: Nonlabored, symmetric chest rise, no audible wheezing, no accessory muscle use, no respiratory distress, speaking in full sentences. GASTROINTESTINAL: Not distended. NEUROLOGIC: Lucid with normal mental status. Normal facial symmetry. Moves all extremities symmetrically and with purpose. No truncal ataxia. Speech is fluid without evidence of dysarthria or aphasia, no focal deficits appreciated. EXTREMITIES: Acute deformities Skin: warm, dry PSYCHIATRIC: Normal affect, normal insight, normal concentration. Focused exam: [] Progress Results/Orders Results/Orders Orders - EILEEN RAY DO Med Rec (03/01/25 00:38) 1799.11 (03/01/25 00:38) Close Observation Level (03/01/25 00:38) Covid19 Binax Poc Result Entry (03/01/25 00:38) Substance Use Navigator (03/01/25 00:38) Regular Diet (03/01/25 Breakfast) Cholecalciferol-1,000unit (D3) (Vitamin (03/01/25 21:00) Desmopressin Acetate (Ddavp 0.1mg Tablet (03/01/25 08:00) Divalproex Sod Er-24 Hr Tablet (Depakote (03/01/25 21:00) Lurasidone Tablet (Latuda Tablet) (03/01/25 08:00) Buspirone Tablet (Buspar Tablet) (03/01/25 08:00) Citalopram Tablet (Celexa Tablet) (03/01/25 08:00) Completed Orders - EILEEN RAY DO Cbc/Diff (03/01/25 00:38) Urinalysis (03/01/25 00:38) Drug Screen, Urine (03/01/25 00:38) Ethanol (03/01/25 00:38) TSH (03/01/25 00:38) BMP (03/01/25 00:38) Vital Signs 03/01/25 03/01/25 00:13 01:20 Temp 98.8 Pulse 88 Resp 18 16 B/P (MAP) 130/79 Pulse Ox 95 Laboratory Tests Test 03/01/25 00:27 03/01/25 01:18 03/01/25 02:23 Urine Specimen Description Voided Urine Color Yellow Urine Clarity Clear Urine pH 6.5 Urine Specific [place] <=1.005 Urine Protein Negative Urine Glucose (UA) Negative Urine Ketones Negative Urine Occult Blood Negative Urine Nitrite Negative Urine Bilirubin Negative Urine Urobilinogen 0.2 Urine Leukocyte Esterase Negative Volume Urine Centrifuged 10 ml Urine Comment Urine Opiates Screen Negative Urine Methadone Screen Negative Urine Fentanyl Screen Negative Urine Barbiturates Screen Negative Urine Phencyclidine Screen Negative Urine Amphetamines Screen Negative Urine Benzodiazepines Screen Negative Urine Cocaine Screen Negative Urine Cannabinoids Screen Positive Drug Screen Comment SARS-CoV-2 Antigen (Rapid) Negative White Blood Count 10.3 Red Blood Count 5.63 Hemoglobin 17.1 Hematocrit 50.2 Mean Corpuscular Volume 89.2 Mean Corpuscular Hemoglobin 30.3 Mean Corpuscular Hemoglobin Concent 34.0 Red Cell Distribution Width 14.3 Platelet Count 246 Mean Platelet Volume 8.4 Neutrophils (%) (Auto) 69.9 Lymphocytes (%) (Auto) 21.2 Monocytes (%) (Auto) 7.7 Eosinophils (%) (Auto) 0.6 Basophils (%) (Auto) 0.6 Neutrophils # (Auto) 7.2 Lymphocytes # (Auto) 2.2 Monocytes # (Auto) 0.8 Eosinophils # (Auto) 0.1 Basophils # (Auto) 0.1 CBC Comment Sodium Level 147 H Potassium Level 5.1 Chloride Level 109 H Carbon Dioxide Level 31.3 Anion Gap 7 L Blood Urea Nitrogen 4 L Creatinine 1.00 Estimated GFR/1.73 m2 82 BUN/Creatinine Ratio 4.0 L Glucose Level 91 Calcium Level 9.2 Albumin 4.2 Thyroid Stimulating Hormone (TSH) 1.24 Chemistry Comments Ethyl Alcohol Level < 10 Medical Decision Making Findings Facility Status: ED Holds, E process The plan was discussed with the patient, who demonstrates clear understanding of the plan and is in agreement with the plan unless otherwise noted in the chart. All questions have been answered, all concerns were addressed unless otherwise documented. I was available throughout their ED stay for frequent reassessment and questions. Differential Diagnoses (considered and possible or likely): [Stress reaction, suicidal ideation, alcohol intoxication, drug toxidrome] ??Differential Diagnoses (considered and unlikely, not requiring evaluation currently): [Unlikely to represent thyrotoxicosis, has no somatic complaints] MDM Data Please see HPI for the following: Independent Historians and external Records Review. Historian: [Patient] Independent Historians: ?[EMS] Medication Management: [Reviewed medication list] Social History and determinants: [Reviewed] Please see the body of the note for the following: Any independent interpretations of ECG, imaging studies. All vitals signs/haemodynamics, ordered tests were independently reviewed and interpreted by myself. Nursing triage complaint and vitals reviewed, additional nursing notes were reviewed as available and I agree unless otherwise noted or documented in contradiction in the chart Vital Signs: Independently reviewed Labs: Independently interpreted Imaging: Independently interpreted Old Medical Records: Independently reviewed, see [facility] for relevant summary and information Pulse Oximetry: [100%] interpreted as [normal on room air] by me Additionally notably showing: [Hemodynamically stable. Unremarkable laboratory workup] Tests considered but not ordered include: [Neither imaging no EKG appear to be necessary at this time] Social Determinants of Health Impact: Patient was evaluated in [facility] [place] to healthcare due to below par ratio of patient to medical providers. [] Comorbid Conditions Impacting Present Evaluation and Care/Treatment: [Depression] Management Discussions with other Healthcare Providers: [Mental health services] Treatment and Disposition Medication Management (Given or considered): []. See EMR for details Consideration for Hospitalization/Escalation/Deescalation of Care: Admission for observation has been considered, [however the patient is able to tolerate p.o., their symptoms are controlled, they are able to rely on oral medications, and their chief complaint/diagnosis can be managed on outpatient basis.] ?ED Course:?[No clinical deterioration. Patient is medically cleared for psychiatric evaluation.] ?Shared decision making:?[] Code status:?FULL Please see the full Electronic Medical Record for full details of nursing documentation, medications list, other records of complete past medical history and conditions, vital signs, laboratory studies, and any radiologic study interpretations by radiologists. Portions of this note were completed using dragon dictation software and as a result there may exist minor errors in spelling. I have reviewed elements of past family and social history and agree as included in note. Departure Disposition: 30 STILL A PATIENT Impression: Primary Impression: Depression Additional Impression: Suicidal ideation Condition: Stable Referrals: NO PRIMARY CARE PROVIDER (PCP) Signature Scribe Signature: No scribe Attestation: This note accurately reflects clinical decisions, work performed by myself, DO CORY Randolph NICHOLAS M DO Mar 01, 2025 00:46
[2025-03-01 00:48] LABS: BILIRUBIN,URINE NEGATIVE (Neg); CLARITY,URINE CLEAR (Clear); COLOR,URINE YELLOW (Yellow); GLUCOSE, URINE NEGATIVE (Neg); KETONES,URINE NEGATIVE (Neg); LEUKOCYTE ESTERASE ,URINE NEGATIVE (Neg); NITRITES, URINE NEGATIVE (Neg); OCCULT BLOOD,URINE NEGATIVE (Neg); PH,URINE 6.5 (4.8-8.0); PROTEIN,URINE NEGATIVE (Neg); UROBILINOGEN,URINE 0.2 E.U/dL (0.2-1.0)
[2025-03-01 00:50] LABS: UA COLLECTION TYPE VOIDED
[2025-03-01 01:05] LABS: URINE AMPHETAMINE SCREEN NEGATIVE (Neg); URINE BARBITUATE SCREEN NEGATIVE (Neg); URINE BENZODIAZEPINES SCREEN NEGATIVE (Neg); URINE CANNABINOID SCREEN POSITIVE (Neg); URINE COCAINE SCREEN NEGATIVE (Neg); URINE METHADONE SCREEN NEGATIVE (Neg); URINE OPIATE SCREEN NEGATIVE (Neg); URINE PHENCYCLIDINE SCREEN NEGATIVE (Neg)
[2025-03-01] MEDS ORDERED: LURA20TA2 PO (01:57)
[2025-03-01] MEDS ORDERED: DESM0.1T24 PO (01:57)
[2025-03-01] MEDS ORDERED: CITA-178 PO (01:57)
[2025-03-01] MEDS ORDERED: CHOL100046 PO (01:59)
[2025-03-01 02:44] LABS: BASOPHILS # (AUTO) 0.1 X10'3 (0-0.2); BASOPHILS % (AUTO) 0.6 % (0-1); EOSINOPHILS # (AUTO) 0.1 X10'3 (0-0.9); EOSINOPHILS % (AUTO) 0.6 % (0-6); HEMATOCRIT 50.2 % (42.0-52.0); HEMOGLOBIN 17.1 g/dl (14.0-17.9); LYMPHOCYTES # (AUTO) 2.2 X10'3 (1.1-4.8); LYMPHOCYTES % (AUTO) 21.2 % (21-51); MEAN CORPUSCULAR HEMOGLOBIN 30.3 PG (27.0-31.0); MEAN CORPUSCULAR VOLUME 89.2 FL (78-98); MEAN PLATELET VOLUME 8.4 FL (7.4-10.4); MONOCYTES # (AUTO) 0.8 X10'3 (0-0.9); MONOCYTES % (AUTO) 7.7 % (2-12); NEUTROPHILS # (AUTO) 7.2 X10'3 (1.8-7.7); NEUTROPHILS % (AUTO) 69.9 % (42-75); PLATELET COUNT 246 X10'3 (140-440); RED BLOOD COUNT 5.63 X10'6 (4.70-6.10); RED CELL DISTRIBUTION WIDTH 14.3 % (11.5-14.5); WHITE BLOOD COUNT 10.3 X10'3 (4.5-11.0)
[2025-03-01 03:08] LABS: ALBUMIN 4.2 G/DL (3.4-5.0); ANION GAP 7 (8-16); BLOOD UREA NITROGEN 4 MG/DL (7-18); CALCIUM 9.2 MG/DL (8.5-10.1); CHLORIDE 109 MMOL/L (99-107); ETHANOL < 10 MG/DL (<10); GLUCOSE 91 MG/DL (70-104); SODIUM 147 MMOL/L (135-145); THYROID STIMULATING HORMONE 1.24 ulU/ml (0.34-4.50); TOTAL CARBON DIOXIDE 31.3 MMOL/L (24-32); eCRCL 103 ML/MIN; eGFR 82 ML/MIN
[2025-03-01 03:12] LABS: POTASSIUM 5.1 MMOL/L (3.5-5.1)
[2025-03-01] MEDS: citalopram 20mg tablet PO SCH (08:23)
[2025-03-01] MEDS: busPIRone 5mg tablet PO SCH (08:23)
[2025-03-01] MEDS: lurasidone 20mg tablet PO SCH (08:23)
[2025-03-01] MEDS: DESMOPRESSIN ACETATE 0.1 MG TABLET PO SCH (08:23)
[2025-03-01 13:29] VITALS: BP 119/83; PULSE 61; RESP 15; O2SAT 99
[2025-03-01] MEDS ORDERED: divalproex sod 250mg ER (24-hour) tablet PO SCH (21:00)
[2025-03-01] MEDS ORDERED: cholecalciferol (vitamin D3) 1,000 unit (25mcg) tablet PO SCH (21:00)
== END 2025-03-01 13:57 | disposition home or self-care (01) ==
LOC: ER 00:12
DX: F32.A Depression, unspecified (principal); R45.851 Suicidal ideations; Z20.822 Contact with and (suspected) exposure to COVID-19; Z88.5 Allergy status to narcotic agent; Z79.899 Other long term (current) drug therapy
CPT/HCPCS: 36415; 80048; 80305; 81003; 84443; 85025; 87811; 99284; G0480; 80320